=== PATIENT | male | born 1970 | race Two or more races ===

== ENCOUNTER 2020-07-05 19:50 | Emergency (ER) | payer OTHER, SELFPAY ==
[~2020-07-05] VITALS: Ht 180.3 cm; Wt 90.3 kg
[2020-07-05] MEDS ORDERED: SODIUM CHLORIDE FLUSH 10ML SYR IVF ONE (20:30)
[2020-07-05] MEDS ORDERED: KETOROLAC 30 MG/1 ML IVPush ONE ×2 (20:30)
[2020-07-05 20:38] LABS: BASOPHILS % (AUTO) 0 % (0-1); EOSINOPHILS % (AUTO) 0 % (1-7); LYMPHOCYTES % (AUTO) 16 % (22-44); MEAN CORPUSCULAR HEMOGLOBIN 32.5 pg (27.5-34.5); MEAN CORPUSCULAR HGB CONC 34.7 g/dL (33.2-36.2); MEAN PLATELET VOLUME 8.9 fL (7.4-10.4); MONOCYTES % (AUTO) 9 % (2-9); NEUTROPHILS % (AUTO) 75 % (42-75); PLATELET COUNT 185 x10^3/uL (130-400); RED BLOOD COUNT 4.53 x10^6/uL (4.38-5.82); RED CELL DISTRIBUTION WIDTH 13.4 % (9.4-14.8)
[2020-07-05 20:46] LABS: ALANINE AMINOTRANSFERASE 33 U/L (12-78); ALBUMIN 3.9 g/dL (3.4-5.0); ANION GAP 7 mmol/L (5-15); CALCIUM 8.5 mg/dL (8.5-10.1); CHLORIDE 102 mmol/L (98-107)
[2020-07-05 20:50] LABS: ALKALINE PHOSPHATASE 80 U/L (45-117); CREATININE 0.88 mg/dL (0.7-1.3); TOTAL PROTEIN 8.7 g/dL (6.4-8.2); TROPONIN I < 0.015 ng/mL (0.000-0.045)
[2020-07-05] MEDS ORDERED: KETOROLAC 30 MG/1 ML ONE (21:12)
[2020-07-05 21:21] VITALS: BP 138/76
== END 2020-07-05 21:23 | disposition home or self-care (01) ==
LOC: ED 21:17
DX: J18.1 Lobar pneumonia, unspecified organism (principal); Z20.822 Contact with and (suspected) exposure to COVID-19; R07.89 Other chest pain; R06.00 Dyspnea, unspecified; R94.31 Abnormal electrocardiogram [ECG] [EKG]; F17.290 Nicotine dependence, other tobacco product, uncomplicated; E78.00 Pure hypercholesterolemia, unspecified
CPT/HCPCS: 36415; 71045; 80053; 84484; 85025; 85379; 93005; 96374; 99285; J1885; U0003; 96372; 99284